=== PATIENT | female | born 1990 | race Caucasian/White ===

== ENCOUNTER 2017-12-04 14:07 | Emergency (ER) | payer SELFPAY ==
[2017-12-04 14:29] VITALS: BP 134/68
[2017-12-04 15:24] LABS: Basophils % (Auto) 0.5 % (0.0-1.8); Eosinophils # (Auto) 0.3 K/mm3 (0.0-0.4); Eosinophils % (Auto) 2.8 % (0.0-4.3); Hematocrit 39.3 % (30.3-42.9); Hemoglobin 13.3 gm/dl (10.1-14.3); Lymphocytes # (Auto) 2.3 K/mm3 (1.2-5.4); Lymphocytes % (Auto) 21.8 % (13.4-35.0); Mean Corpuscular HGB Conc 34 % (30-34); Mean Corpuscular Hemoglobin 31 pg (28-32); Mean Corpuscular Volume 91 fl (79-97); Monocytes # (Auto) 0.7 K/mm3 (0.0-0.8); Monocytes % (Auto) 7.3 % (0.0-7.3); Platelet Count 314 K/mm3 (140-440); Red Blood Count 4.32 M/mm3 (3.65-5.03); Red Cell Distribution Width 14.7 % (13.2-15.2)
--- NOTE | 2017-12-04 17:42 | Ultrasound Report ---
FINAL REPORT PROCEDURE: US OB < = 14 WEEKS FETUS TECHNIQUE: Real-time transabdominal sonography of the uterus, placenta, amniotic fluid, adnexa, and fetus was performed with image documentation. Measurements were obtained to determine age/size. M-mode Doppler was used to document heartbeat. CPT 52982 HISTORY: vaginal bleeding COMPARISON: Transvaginal OB ultrasound also performed today. FINDINGS: Today's report was generated using images from both the transabdominal and a transvaginal OB ultrasound both of which were performed today. There is a single living intrauterine gestation visualized with a heart rate of 104 beats per minute. Yolk sac is visualized. Amount of amniotic fluid appears normal. pole is visualize measuring 5.3 millimeters corresponding to an age is 6 week 2 day. This places the EDC at 07/28/2018 +/-0.5 weeks. Fetus currently too small to assess anatomy. No gross abnormality is visualized. Consider follow-up exam at 18-20 weeks. Small subchorionic fluid collection, subchorionic hemorrhage visualized measuring 6.6 x 4.5 x 3.3 millimeters. Uterus otherwise is unremarkable. Minimal nonspecific free fluid is seen in the cul-de-sac. There is a 1.8 centimeter complex thick walled cystic structure in the left ovary suggesting corpus luteum cyst of . Nonspecific thin wall cystic area visualized in the right ovary measuring 2.1 centimeter. Right and left ovaries otherwise are unremarkable. The right ovary measures 3.1 x 3.1 x 3.1 centimeter. The left ovary measures 3.1 x 2.7 x 2.2 centimeter. IMPRESSION: Single living intrauterine gestation visualized as described. Sonographic age by crown-rump length measurements 6 week 2 days placing the EDC at 07/28/2018 +/-0.5 weeks. Small subchorionic hemorrhage visualized as described. Gestational sac otherwise is unremarkable. Thick-walled cystic structure visualized left ovary suggesting corpus luteum cyst of . Nonspecific thin walled cystic structure visualize right ovary measuring 2.1 centimeter.
--- NOTE | 2017-12-04 17:44 | Ultrasound Report ---
FINAL REPORT PROCEDURE: US OB TRANSVAGINAL TECHNIQUE: Real-time transvaginal sonography of the uterus, placenta, amniotic fluid, adnexa, and fetus was performed with image documentation. Measurements were obtained to determine age/size. M-mode Doppler was used to document heartbeat. CPT 56328 HISTORY: vaginal bleeding COMPARISON: Transabdominal OB ultrasound also performed today. FINDINGS: Today's report was generated using images from both the transabdominal and a transvaginal OB ultrasound both of which were performed today. There is a single living intrauterine gestation visualized with a heart rate of 104 beats per minute. Yolk sac is visualized. Amount of amniotic fluid appears normal. pole is visualize measuring 5.3 millimeters corresponding to an age is 6 week 2 day. This places the EDC at 07/28/2018 +/-0.5 weeks. Fetus currently too small to assess anatomy. No gross abnormality is visualized. Consider follow-up exam at 18-20 weeks. Small subchorionic fluid collection, subchorionic hemorrhage visualized measuring 6.6 x 4.5 x 3.3 millimeters. Uterus otherwise is unremarkable. Minimal nonspecific free fluid is seen in the cul-de-sac. There is a 1.8 centimeter complex thick walled cystic structure in the left ovary suggesting corpus luteum cyst of . Nonspecific thin wall cystic area visualized in the right ovary measuring 2.1 centimeter. Right and left ovaries otherwise are unremarkable. The right ovary measures 3.1 x 3.1 x 3.1 centimeter. The left ovary measures 3.1 x 2.7 x 2.2 centimeter. IMPRESSION: Single living intrauterine gestation visualized as described. Sonographic age by crown-rump length measurements 6 week 2 days placing the EDC at 07/28/2018 +/-0.5 weeks. Small subchorionic hemorrhage visualized as described. Gestational sac otherwise is unremarkable. Thick-walled cystic structure visualized left ovary suggesting corpus luteum cyst of . Nonspecific thin walled cystic structure visualize right ovary measuring 2.1 centimeter.
== END 2017-12-04 19:05 | disposition left against medical advice (07) ==
LOC: ED 14:07
DX: O46.91 Antepartum hemorrhage, unspecified, first trimester (principal); Z3A.01 Less than 8 weeks gestation of pregnancy; Z53.21 Procedure and treatment not carried out due to patient leaving prior to being seen by health care provider
CPT/HCPCS: 36415; 76801; 76817; 84702; 85025; 86850; 86900; 86901